=== PATIENT | female | born 1965 | race African-American/Black ===

== ENCOUNTER 2016-11-05 19:35 | Emergency (ER) | payer SELFPAY ==
[~2016-11-05] VITALS: Ht 182.9 cm; Wt 91.0 kg
[2016-11-05] MEDS ORDERED: KETOROLAC 60MG/2ML VIAL IM ONE (20:00)
[2016-11-05] MEDS ORDERED: HYDROCODONE/ACETAMINOPHEN 5/325MG TABLET PO ONE (20:30)
[2016-11-05 21:24] VITALS: BP 117/76
== END 2016-11-05 21:25 | disposition home or self-care (01) ==
LOC: ER 20:13
DX: S52.592A Other fractures of lower end of left radius, initial encounter for closed fracture (principal); S52.612A Displaced fracture of left ulna styloid process, initial encounter for closed fracture; W01.0XXA Fall on same level from slipping, tripping and stumbling without subsequent striking against object, initial encounter; Y93.89 Activity, other specified; Y92.89 Other specified places as the place of occurrence of the external cause; R03.0 Elevated blood-pressure reading, without diagnosis of hypertension
CPT/HCPCS: 29125; 73110; 96372; 99284; J1885; Z7610

== ENCOUNTER 2016-11-08 17:49 | Emergency (ER) | payer SELFPAY ==
[~2016-11-08] VITALS: Ht 182.9 cm; Wt 86.0 kg
[2016-11-09] MEDS ORDERED: KETOROLAC 60MG/2ML VIAL IM ONE (01:00)
[2016-11-09 02:51] VITALS: BP 115/75
== END 2016-11-09 03:10 | disposition home or self-care (01) ==
LOC: ER 17:49
DX: S52.92XA Unspecified fracture of left forearm, initial encounter for closed fracture (principal); S52.612A Displaced fracture of left ulna styloid process, initial encounter for closed fracture; F12.10 Cannabis abuse, uncomplicated; X58.XXXA Exposure to other specified factors, initial encounter; Y93.89 Activity, other specified; Y92.89 Other specified places as the place of occurrence of the external cause; Y99.8 Other external cause status; Z98.890 Other specified postprocedural states
CPT/HCPCS: 29125; 96372; 99283; J1885